=== PATIENT | female | born 1990 | race African-American/Black ===

== ENCOUNTER → 2022-02-08 | Outpatient (CLI) | payer OTHER | LOC: MHCPAIN 09:47 | DX: M47.817 Spondylosis without myelopathy or radiculopathy, lumbosacral region (principal); M53.3 Sacrococcygeal disorders, not elsewhere classified; M54.50 Low back pain, unspecified | CPT/HCPCS: G0463 ==

== ENCOUNTER 2022-03-14 09:32 | Outpatient (CLI) | payer OTHER ==
[~2022-03-14] VITALS: Ht 160.1 cm; Wt 93.1 kg
[2022-03-14] MEDS ORDERED: COLACE 100100 MG/CAP PO (10:16)
[2022-03-14] MEDS ORDERED: FLONASEALLERGY NS (10:17)
[2022-03-14] MEDS ORDERED: ALLEGRA 180MG180 MG PO (10:17)
[2022-03-14] MEDS ORDERED: MICROZIDE12.5 MG PO (10:18)
[2022-03-14 10:19] LABS: BASO % 0.7 % (0.0-2.0); EOS # 0.2 K/mm3 (0.0-0.7); EOS % 4.1 % (0.0-4.0); GRAN # 1.5 K/mm3 (1.4-6.5); HEMOGLOBIN 12.3 g/dl (12.5-16.0); LYMPH # 2.1 K/mm3 (1.2-3.4); LYMPH % 52.1 % (20.0-51.0); MEAN CELL VOLUME 94 fl (80.0-100.0); MEAN CORPUSCULAR HEMOGLOBIN 32 pg (27-31); MEAN CORPUSCULAR HGB CONC 34 g/dl (33.0-37.0); MEAN PLATELET VOLUME 10.3 fl (7.4-10.4); MONO # 0.3 K/mm3 (0.1-0.6); MONO % 7.1 % (1.7-9.3); PLATELET COUNT 345 K/mm3 (130-400); RED BLOOD COUNT 3.84 M/mm3 (4.10-5.30); REDCELL DISTRIBUTION WIDTH-CV 11.9 % (11.5-14.5)
[2022-03-14] MEDS ORDERED: MOTRIN 200200 MG/TAB PO (10:19)
[2022-03-14] MEDS ORDERED: PROCARDIA XL 3030 MG PO (10:20)
[2022-03-14] MEDS ORDERED: PROCARDIA XL 6060 MG PO (10:20)
[2022-03-14 10:23] VITALS: BP 150/100; PULSE 68; TEMP 99
[2022-03-14 10:31] LABS: PROTHROMBIN TIME 11.7 SECONDS (9.7-12.8)
[2022-03-14 10:49] LABS: ALBUMIN 3.9 gm/dL (3.5-5.0); BILIRUBIN,TOTAL 0.8 mg/dL (0.2-1.2); CALCIUM 8.5 mg/dL (8.4-10.2); CREATININE, serum 0.97 mg/dL (0.57-1.11); POTASSIUM 3.2 mmol/L (3.5-4.5)
[2022-03-14 12:05] VITALS: BP 150/102; PULSE 79
--- NOTE | 2022-03-14 12:05 | NUR ---
RECIEVED REPORT, PT SITS UP IN BED, USES PHONE, NO C/O TAKES GRAHM CRACKERS AND WATER
[2022-03-14 12:15] VITALS: BP 140/102; PULSE 86
[2022-03-14 12:30] VITALS: BP 152/103; PULSE 79
[2022-03-14 12:45] VITALS: BP 164/106; PULSE 80
--- NOTE | 2022-03-14 13:00 | NUR ---
PT SITS ON SIDE OF BED, REVIEWED DISCHARGE INST. ON ACTIVITY AND PRECAUTIONS TODAY, ALSO REVIEWED APPT MADE FOR PT FOR FOLLOWUP AND NUMBER TO CALL IF NEEDING RESCHEDULED. PT SUMMARY GIVEN ALSO OF MED LIST WITH NO CHANGES. PT UP TO B/R, GAIT STEADY. IV D'CD INTACT. UP IN ROOM DRESSED AND DISCHARGED VIA W/C TO CAR AT 1310
== END 2022-03-14 13:10 | disposition home or self-care (01) ==
LOC: COL.RAD 09:32
PROVIDERS: Internal Medicine Cardiovascular Disease; Nurse Anesthetist, Certified Registered
DX: I08.0 Rheumatic disorders of both mitral and aortic valves (principal); I25.10 Atherosclerotic heart disease of native coronary artery without angina pectoris
CPT/HCPCS: J2704